=== PATIENT | female | born 2000 | race Two or more races ===

== ENCOUNTER 2021-09-28 07:58 | Emergency (ER) | payer MEDICAID, OTHER ==
[~2021-09-28] VITALS: Ht 157.5 cm; Wt 79.6 kg
[2021-09-28 10:25] LABS: Urine Amorphous Crystal FEW /hpf (None Seen); Urine Bacteria FEW /hpf (None Seen); Urine Blood Negative /uL (Negative); Urine Mucus FEW (None Seen); Urine Specific Gravity 1.029 (1.001-1.035); Urine WBC 15 /hpf (0 - 5)
[2021-09-28 10:33] LABS: Albumin 3.6 g/dL (3.4-5.0); Calcium 9.2 mg/dL (8.5-10.1); Potassium 4.4 mmol/L (3.5-5.1)
[2021-09-28 10:35] LABS: Basophils # (auto) 0 10 ^3/uL (0-0.2); Basophils % (auto) 0.5 % (0.0-2.0); Eosinophils # (auto) 0.1 10 ^3/uL (0-0.8); Hemoglobin 12.2 g/dL (12.2-16.2); Lymphocytes # (auto) 1.9 10 ^3/uL (0.4-5.4); Lymphocytes % (auto) 23.1 % (10.0-50.0); Mean Corpuscular Hemoglobin 27.8 pg (28.0-32.0); Mean Corpuscular Hgb Conc. 33.1 g/dL (32.0-36.0); Mean Corpuscular Volume 83.9 fL (80.0-100.0); Monocytes # (auto) 0.3 10 ^3/uL (0-1.3); Monocytes % (auto) 3.9 % (0.0-12.0); Neutrophils # (auto) 5.8 10 ^3/uL (1.6-8.6); Neutrophils % (auto) 71.5 % (37.0-80.0); Red Blood Cells 4.41 10^6/uL (4.0-5.20); White Blood Cell 8.1 10^3/uL (4.4-10.8)
[2021-09-28 10:39] LABS: BUN/Creatinine Ratio 10.7; Bilirubin, Total 1.1 mg/dL (0.2-1.0); Total Protein 7.9 g/dL (6.4-8.2)
[2021-09-28] MEDS ORDERED: NITR-87 PO (13:49)
[2021-09-28 14:00] VITALS: BP 121/70
== END 2021-09-28 14:17 | disposition home or self-care (01) ==
LOC: ER 07:58
DX: O23.41 Unspecified infection of urinary tract in pregnancy, first trimester (principal); N39.0 Urinary tract infection, site not specified; O21.8 Other vomiting complicating pregnancy; Z3A.01 Less than 8 weeks gestation of pregnancy
CPT/HCPCS: 36415; 76801; 76817; 80053; 81001; 84702; 85025